=== PATIENT | female | born 1945 | race Caucasian/White ===

== ENCOUNTER → 2021-01-25 | Outpatient (CLI) | payer MEDICARE, OTHER ==
[~2021-01-25] MED LIST: ASPIRIN CHEWABL81 MG PO; CENTRUM SILVER1 EAC1 PO; COLACE 100MG C100 MG PO; CRANBERRY200 MG PO; DULOXETINE HCL60 MG PO; HYDROCHLOROTH12.5 MG PO; LIPITOR TAB 1010 MG PO; NEURONTIN 100100 MG PO; PERCOCET 5-3251 EACH PO; PERCOCET 5/325 T1 EA PO; PERCOCET 7.5-31 EACH PO; SENNA LAX8.6 MG PO; TOPROL XL100 MG PO; TYLENOL 325MG325 MG PO; [UNRECOGNIZED DRUG - OTHER]
== END ==
LOC: EMI 11:55
DX: M51.36 Other intervertebral disc degeneration, lumbar region (principal); M51.37 Other intervertebral disc degeneration, lumbosacral region; M48.061 Spinal stenosis, lumbar region without neurogenic claudication
CPT/HCPCS: 72148

== ENCOUNTER → 2022-01-25 | Outpatient (CLI) | payer OTHER | LOC: KOH-I 09:30 | DX: M48.061 Spinal stenosis, lumbar region without neurogenic claudication (principal); M51.16 Intervertebral disc disorders with radiculopathy, lumbar region; M54.50 Low back pain, unspecified | CPT/HCPCS: 72148 ==